=== PATIENT | female | born 2000 | race African-American/Black ===

== ENCOUNTER 2019-05-27 18:17 | Emergency (ER) | payer SELFPAY ==
[~2019-05-27] VITALS: Ht 172.7 cm; Wt 70.0 kg
[2019-05-27] MEDS ORDERED: KETOROLAC 30MG/ML VIAL IV STA (21:32)
[2019-05-27] MEDS ORDERED: SODIUM CHLORIDE 0.9% 1,000 ML IV ONE (21:32)
[2019-05-27 22:23] LABS: BASOPHILS % 0.3 % (0.0-2.0); CLARITY URINE CLOUDY (CLEAR); COLOR URINE YELLOW (YELLOW); EOSINOPHILS % 1.3 % (0.0-5.0); HEMATOCRIT. 39.1 % (36.0-48.0); HEMOGLOBIN. 13.6 g/dL (12.0-16.0); KETONES URINE TRACE (NEGATIVE); LEUKOCYTE ESTERASE URINE NEGATIVE (NEGATIVE); MEAN CORPUSCULAR HEMOGLOBIN 32.7 pg (28.0-32.0); MEAN CORPUSCULAR VOLUME 94.2 fL (81.0-99.0); MEAN PLATELET VOLUME 9.8 fl (7.4-10.4); MONOCYTES % 6.2 % (2.0-8.0); NEUTROPHILS % 59.2 % (40.0-76.0); NITRITE URINE NEGATIVE (NEGATIVE); OCCULT BLOOD URINE NEGATIVE (NEGATIVE); PH URINE 5.5 (4.5-8.0); PLATELET 227 x1000/uL (130-400); PROTEIN URINE NEGATIVE (NEGATIVE); RED BLOOD CELL COUNT 4.15 mill/uL (4.2-5.4); RED CELL DISTRIBUTION WIDTH 13.3 % (11.6-14.6); SPECIFIC GRAVITY URINE 1.035 (1.005-1.030)
[2019-05-27 22:29] LABS: CHLORIDE 103 mEq/L (98-107)
[2019-05-27] MEDS ORDERED: HYDROCODONE/ACETAMINOPHEN 5/325MG TABLET PO ONE (23:15)
[2019-05-28 00:22] VITALS: BP 115/74
== END 2019-05-28 00:22 | disposition home or self-care (01) ==
LOC: ER 18:17
DX: R10.30 Lower abdominal pain, unspecified (principal)
CPT/HCPCS: 36415; 74021; 80053; 81003; 83690; 85025; 96374; 99284; J1885; J7030